=== PATIENT | female | born 1945 | race Caucasian/White ===

== ENCOUNTER 2016-07-16 06:13 | Day surgery (SDC) | payer OTHER ==
[2016-07-09 16:51] LABS: BASOPHILS 0.2 %; BASOPHILS ABSOLUTE 0.01 10/3/uL (0.0-0.16); EOSINOPHILS 3.6 %; EOSINOPHILS ABSOLUTE 0.17 10/3/uL (0.0-0.53); HEMATOCRIT 39.5 % (36.0-48.0); HEMOGLOBIN 12.6 g/dL (12.0-16.0); IMMATURE GRANULOCYTES 0.2 %; IMMATURE GRANULOCYTES ABSOLUTE 0.01 10/3/uL (0.0-0.11); LYMPHOCYTES 28.4 %; LYMPHOCYTES ABSOLUTE 1.34 10/3/uL (0.67-4.30); MEAN CORPUS HGB CONC 31.9 g/dL (32.0-36.0); MEAN CORPUSCULAR HEMOGLOB 31.1 pg (26.0-34.0); MEAN PLATELET VOLUME 10.1 fL (9.2-13.0); MONOCYTES 10.2 %; MONOCYTES ABSOLUTE 0.48 10/3/uL (0.21-1.20); NEUTROPHILS 57.4 %; NEUTROPHILS ABSOLUTE 2.71 10/3/uL (2.02-8.40); PLATELET COUNT 238 10/3/uL (150-400); RBC DISTRIBUTION WIDTH 13.7 % (12.0-16.0); RED CELL COUNT 4.05 10/6/uL (4.0-5.6); WHITE BLOOD CELLS 4.7 10/3/uL (4.5-10.5)
[2016-07-09 16:52] LABS: MANUAL DIFF NO %; MEAN CORPUSCULAR VOLUME 97.5 fL (80-100)
[2016-07-09 17:11] LABS: BUN (BLOOD UREA NITROGEN) 16 MG/DL (6-23); CHLORIDE, SERUM 106 MMOL/L (96-112); CO2 (CARBON DIOXIDE) 28 MMOL/L (24-34); CREATININE 0.88 MG/DL (0.55-1.02); GFR AFRICAN AMERICAN 76 ML/MIN (>=60); GFR NON AFRICAN AMERICAN 66 ML/MIN (>=60); POTASSIUM, SERUM 4.5 MMOL/L (3.5-5.3); SODIUM, SERUM 143 MMOL/L (135-148)
[2016-07-09 17:14] LABS: CALCIUM, SERUM 8.2 MG/DL (8.5-10.4); GLUCOSE, SERUM 81 MG/DL (60-99)
[2016-07-09 17:59] LABS: ALBUMIN 3.4 G/DL (3.5-5.0); ALKALINE PHOSPHATASE 152 U/L (45-117); DIRECT BILIRUBIN 0.1 MG/DL (0.0-0.4); INDIRECT BILIRUBIN(NOT ORDER) 0.2 MG/DL (0.1-0.9); SGOT(AST) 38 U/L (5-40); SGPT(ALT) 32 U/L (5-65); TOTAL BILIRUBIN 0.3 MG/DL (0-1.2); TOTAL PROTEIN 6.6 G/DL (6.0-8.5)
--- NOTE | ~2016-07-16 | OP ---
Record Of Operation [facility] [address] [place]. [address] NAME: AIME MELVIN : 43 STATUS : REG [facility] [place] PAT#: [id number] AGE: 71 ADM/REG DATE : 07/16/16 MR#: [id number] REPORT SERV DATE: 07/16/16 DICTATED BY: ELO VILLAVICENCIO DATE: 07/16/16 REPORT STATUS : Draft TRANSCRIBED BY: MODL DATE: 07/16/16 DATE OF PROCEDURE: 07/16/2016 SERVICE: Otolaryngology. SURGEON: Elo Villavicencio MD. PREOPERATIVE DIAGNOSES: 1. 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 2. 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 3. Concerning skin lesion at the right temporal area. POSTOPERATIVE DIAGNOSES: 1. 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 2. 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 3. Concerning skin lesion at the right temporal area. PROCEDURES: 1. Wide local excision of the left nasal bridge with full-thickness skin graft reconstruction, full-thickness graft was taken from the left supraclavicular area. The approximate size of the resection was 2 cm. 2. Wide local excision of the left forehead with local soft tissue advancement closure. 3. Wide local excision of the right face with local soft tissue advancement and closure. Frozen section margins were performed on all three of these lesions and were all negative at the time of closure. COMPLICATIONS: None. SPECIMENS: 1. Left nasal bridge lesion. 2. Left forehead. 3. Right face. 4. Repeat deep margin of the left nasal bridge. STATEMENT OF MEDICAL NECESSITY: This is a 71-year-old female referred [facility] by her primary care physician with nodular lesions on the left side of the nose, left forehead, and a scaly lesion on the right face. Excisional biopsy was performed in the [facility]. This returned the diagnosis of invasive infiltrative nodular basal cell carcinoma on the forehead and the nose with positive margins. I did not biopsy the right uatsdin because the patient had a vasovagal reaction in my clinic. Plan today is operation for appropriate clearance of all margins and closure. STATEMENT OF OPERATION: The patient was brought to the operating room in supine position and transferred over to the operating room table after pressure points were padded and a laryngeal mask airway anesthesia was established, using a surgical marking pen, ellipses were marked out around the above-mentioned lesions. They were all infiltrated with 1% Record Of Operation [address] [address] NAME: AIME MELVIN : 43 STATUS : REG [facility] [place] PAT#: [id number] AGE: 71 ADM/REG DATE : 07/16/16 MR#: [id number] REPORT SERV DATE: 07/16/16 DICTATED BY: ELO VILLAVICENCIO DATE: 07/16/16 REPORT STATUS : Draft TRANSCRIBED BY: GERMAINE DATE: 07/16/16 lidocaine with epinephrine. I also infiltrated the left supraclavicular skin area with 1% lidocaine with epinephrine. The total amount of local anesthetic was 10 mL. The patient was then prepped and draped in the usual sterile fashion. Starting with the left nasal bridge, a 15C blade was used to incise out the marked margins. The specimen was marked with sutures. Please see the nurse's notes for specific marking. The excision was taken down to the level of the nasal muscles. This was sent for frozen analysis. Dr. Lyons reported that the peripheral margins were clear. The deep margin was clear as well. Although very close at 0.1 cm. Given this finding, I elected to take another deep margin and send it for permanent. The left uatsdin region was then resected in the same fashion down to the muscular layer. This was reported back as clear. The skin margins were undermined for a centimeter and a half on either direction. It was then closed in two layers with 4-0 Vicryl and 5-0 fast absorbing gut sutures. Next, the right skin lesion was also excised in the same fashion. It returned diagnosis of high-grade actinic keratosis, possible invasive carcinoma with clear margins. This was also closed by undermining the skin in all directions and closing in two layers with 4-0 Vicryl and 5-0 fast absorbing gut sutures. A full-thickness skin graft was excised from the left supraclavicular region measuring approximately 1.5 x 2 cm. This was placed into the wound bed and secured peripherally with interrupted 5-0 fast absorbing gut sutures. Prior to placement, it was thinned out at the back table. A Xeroform bolster was applied to the skin graft to allow complete apposition to the wound bed, and it was sutured in place with 3-0 silk bolster sutures. This concluded the case. The patient was turned back over to Anesthesia, where she was awoken, was extubated, and transferred to the PACU in stable condition. PS/MODL Elo Villavicencio MD / [id number] CC: MD Nato Ruiz M.D.
[~2016-07-16 06:13] MED LIST: ASAB PO; BYSTOLIC10 MG PO; D 5000 PO; FISH-EPA1000 MG PO; FLEXERIL5 MG PO; FLONASE NAS; FOSAMAX70 MG PO; IBU800 PO; IMDUR60 PO; LEVOTHYROXIN150 MCG PO; LEVOTHYROXIN200 MCG PO; NITROQUICK0.4 MG SL; PEP20 PO; PLAVIX PO; PRIN2.5 PO; PROZ10 PO; TOPXL25 PO; URSO250 PO; WELL100 PO; ZETIA PO
== END 2016-07-16 14:19 | disposition home or self-care (01) ==
LOC: SDC 06:13
PROVIDERS: Otolaryngology
PROC: 0HR1X73 Replacement of Face Skin with Autologous Tissue Substitute, Full Thickness, External Approach (ICD-10-PCS; 2016-07-16)
PROC: 0HR1X73 Replacement of Face Skin with Autologous Tissue Substitute, Full Thickness, External Approach (ICD-10-PCS; principal; 2016-07-16 07:15)
DX: C44.311 Basal cell carcinoma of skin of nose (principal); C44.319 Basal cell carcinoma of skin of other parts of face; I10 Essential (primary) hypertension; I48.91 Unspecified atrial fibrillation; I25.10 Atherosclerotic heart disease of native coronary artery without angina pectoris; Z95.1 Presence of aortocoronary bypass graft; E03.9 Hypothyroidism, unspecified; Z88.2 Allergy status to sulfonamides; I25.2 Old myocardial infarction; Z79.82 Long term (current) use of aspirin; Z79.51 Long term (current) use of inhaled steroids; Z79.899 Other long term (current) drug therapy; Z98.890 Other specified postprocedural states
CPT/HCPCS: 36415; 80048; 80076; 85025; 88305; 88331; 88332; 93005; A9270-GY; J0690; J2250; J2370; J2405; J3010